=== PATIENT | female | born 1995 | race Caucasian/White ===

== ENCOUNTER 2020-01-10 15:20 | Outpatient (CLI) | payer BC, SELFPAY ==
--- NOTE | 2020-01-10 | US_ITS ---
WS: [id number] ULTRASOUND PELVIS TECHNIQUE: Transabdominal and transvaginal. ULTRASOUND PELVIS TECHNIQUE: Transabdominal. CLINICAL INFORMATION: AMENORRHEA LMP: October 19, 2019 : No. COMPARISON: None. FINDINGS: Uterus Orientation: Retroverted Size: 10.4 cm x 5.4 cm x 4.0 cm. Masses: None. Cervix: 3.5 cm. Nabothian cysts. Endometrium: Thickened Endometrium thickness: 1.3 cm. Adnexa: Left ovarian cyst measuring 2.4 x 1.8 x 2.1 cm Right ovary size: 3.1 cm x 2.5 cm x 2.7 cm. Right ovary volume: 10.9 ccm3. Left ovary size: 3.6 cm x 1.7 cm x 3.4 cm. Left ovary volume: 10.6 ccm3 Free fluid: None. Other findings: None. US/US pelvic with transvaginal IMPRESSION: 1. Retroverted uterus. 2. Thickened endometrium measuring 13 mm. 3. Left ovarian cyst measuring 2.4 x 1.8 x 2.1 cm
== END 2020-01-10 15:21 | disposition home or self-care (01) ==
PROVIDERS: Family Provider Family Medicine; PCP Family Medicine; Visit Provider Nurse Practitioner Family
DX: N91.2 Amenorrhea, unspecified (principal); N85.4 Malposition of uterus; N83.202 Unspecified ovarian cyst, left side
CPT/HCPCS: 76830; 76856

== ENCOUNTER → 2020-03-04 10:47 | Outpatient (BNVA) | payer OTHER, SELFPAY | PROVIDERS: Family Provider Family Medicine; PCP Family Medicine; Visit Provider Obstetrics & Gynecology | DX: N91.1 Secondary amenorrhea (principal) | CPT/HCPCS: 82672; 83001; 83002; 84144; 84146; 84402; 84443; 84702 ==

== ENCOUNTER → 2020-03-17 13:16 | Outpatient (BNVA) | payer OTHER, SELFPAY | PROVIDERS: Family Provider Family Medicine; PCP Family Medicine; Visit Provider Obstetrics & Gynecology | DX: N93.9 Abnormal uterine and vaginal bleeding, unspecified (principal); N91.2 Amenorrhea, unspecified | CPT/HCPCS: 84402; 84403 ==

== ENCOUNTER → 2020-05-20 08:29 | Outpatient (BNVA) | payer BC, SELFPAY | PROVIDERS: Family Provider Family Medicine; PCP Family Medicine; Visit Provider Obstetrics & Gynecology | DX: Z32.01 Encounter for pregnancy test, result positive (principal) | CPT/HCPCS: 81025 ==